=== PATIENT | male | born 1975 | race Caucasian/White ===

== ENCOUNTER 2019-05-22 14:47 | Emergency (ER) | payer BC ==
[2019-05-22] MEDS ORDERED: Adacel Vial IM ONE ×2 (15:18→15:42)
[2019-05-22] MEDS ORDERED: CLINDAMYCIN-D5W 900 MG/50 ML*** 900 MG/50 ML BAG IV STA (15:19)
--- NOTE | 2019-05-22 15:25 | ERPHSYRPT ---
- History of Present Illness Time Seen by Provider: 05/22/19 14:49 Source: patient Exam Limitations: no limitations Patient Subjective Stated Complaint: pt here for a rash to lower legs for a week , has been on antibotics, pt noteced rash after deer hunting, left foot swollen Triage Nursing Assessment: pt alert, resp easy, skin w/d/p. pt has rash to lower legs, some areas with scabs and swelling to left foot Physician History: 44 years old generally healthy male presented to the ER with chief complaint of bilateral lower extremity rash for almost one week. He was evaluated outpatient , currently on Keflex for the last 4 days with no significant relief and is having more swelling and erythema of left foot associated with moderate intensity sharp shooting pain in left foot with ambulation and better with resting. No swelling of ankle and leg but has multiple spots with scabbing and erythema around. Patient reports he was deer hunting before getting these lesions [place] in the [place]. Denies any fever or chills. No history of MRSA in the past. Timing/Duration: week(s) (1) Quality: burning, itchy, painful Severity: moderate Location: feet, extremities (bilateral lower) Possible Causes: exposure to allergen Modifying Factors: Improves With: prednisone, scratching Associated Symptoms: change in skin texture, edema, rash, No difficulty breathing, No fever, No numbness, No paresthesia Allergies/Adverse Reactions: No Known Drug Allergies Allergy (Unverified 05/22/19 15:05) Hx Tetanus, Diphtheria Vaccination/Date Given: No Hx Influenza Vaccination/Date Given: No Hx Pneumococcal Vaccination/Date Given: No Immunizations Up to Date: Yes - Review of Systems Constitutional: No Symptoms Eyes: No Symptoms Ears, Nose, & Throat: No Symptoms Respiratory: No Symptoms Cardiac: No Symptoms Abdominal/Gastrointestinal: No Symptoms Genitourinary Symptoms: No Symptoms Musculoskeletal: No Symptoms Skin: Cellulitis, Pruritis, Rash, Skin Lesions Neurological: No Symptoms Psychological: No Symptoms Hematologic/Lymphatic: No Symptoms Immunological/Allergic: No Symptoms - Past Medical History Pertinent Past Medical History: No - Past Surgical History Past Surgical History: No - Social History Smoking Status: Never smoker Exposure to second hand smoke: No Drug Use: none Patient Lives Alone: No - Nursing Vital Signs Nursing Vital Signs: Initial Vital Signs Temperature 98.1 F 05/22/19 14:54 Pulse Rate 100 H 05/22/19 14:54 Respiratory Rate 16 05/22/19 14:54 Blood Pressure 145/96 05/22/19 14:54 O2 Sat by Pulse Oximetry 98 05/22/19 14:54 Pain Scale Pain Intensity 5 - Physical Exam General Appearance: no apparent distress Eye Exam: eyes nml inspection Ears, Nose, Throat Exam: normal ENT inspection Neck Exam: normal inspection Respiratory Exam: normal breath sounds, lungs clear Cardiovascular Exam: regular rate/rhythm, normal heart sounds Gastrointestinal/Abdomen Exam: soft Back Exam: normal inspection Extremity Exam: normal range of motion, inflammation, swelling Neurologic Exam: alert, oriented x 3, cooperative Skin Exam: rash, other (mmultiple lesions on bilateral lower legs and feet on feet. Swelling of left foot distally on dorsal aspect with skin lesions scabbing in the center. Warm and tender to touch. No increase in temperature of a lleft foot as compared to right. Intact range of motion at the left ankle and toes.) SpO2 Interpretation: normal SpO2: 98 O2 Delivery: Room Air - Course Nursing assessment & vital signs reviewed: Yes Ordered Tests: Active Orders 24 hr Category Date Time Status BLOOD CULTURE Stat Lab 05/22/19 15:40 Received CBC W DIFF Stat Lab 05/22/19 15:18 Completed CMP Stat Lab 05/22/19 15:30 Completed Lactic Acid Stat Lab 05/22/19 15:45 Completed Medication Summary Discontinued Medications Generic Name Dose Route Start Last Admin Trade Name Freq PRN Reason Stop Dose Admin Diphtheria/Tetanus/Acell Pertussis 0.5 ml 05/22/19 15:18 05/22/19 15:42 Adacel Vial IM 05/22/19 15:19 0.5 ml .ONCE ONE Administration Diphtheria/Tetanus/Acell Pertussis Confirm 05/22/19 15:42 Adacel Vial Administered 05/22/19 15:43 Dose 0.5 ml IM .STK-MED ONE Clindamycin HCl/Dextrose 900 mg in 50 mls @ 100 mls/hr 05/22/19 15:19 16:24 Clindamycin-D5w 900 Mg/50 Ml IV 05/22/19 15:48 Infused STAT STA Infusion Clindamycin HCl/Dextrose Confirm 05/22/19 15:41 Clindamycin-D5w 900 Mg/50 Ml Administered 05/22/19 15:42 Dose 900 mg in 50 mls @ ud IV .STK-MED ONE Lab/Rad Data: Laboratory Result Diagrams 05/22/19 15:18 05/22/19 15:30 Laboratory Results 05/22/19 05/22/19 05/22/19 Range/Units 15:45 15:30 15:18 WBC 9.2 (4.0-10.5) K/mm3 RBC 4.98 (4.1-5.6) M/mm3 Hgb 14.4 (12.5-18.0) gm/dl Hct 43.5 (42-50) % MCV 87.3 (78-100) fl MCH 28.9 (26-32) pg MCHC 33.1 (32-36) g/dl RDW 13.5 (11.5-14.0) % Plt Count 298 (150-450) K/mm3 MPV 10.1 H (6-9.5) fl Gran % 72.2 H (36.0-66.0) % Eos # (Auto) 0.25 (0-0.5) Absolute Lymphs (auto) 1.72 (1.0-4.6) Absolute Monos (auto) 0.53 (0.0-1.3) Lymphocytes % 18.8 L (24.0-44.0) % Monocytes % 5.8 (0.0-12.0) % Eosinophils % 2.7 (0.00-5.0) % Basophils % 0.5 (0.0-0.4) % Absolute Granulocytes 6.60 (1.4-6.9) Basophils # 0.05 (0-0.4) Sodium 142 (137-145) mmol/L Potassium 3.9 (3.5-5.1) mmol/L Chloride 105 (98-107) mmol/L Carbon Dioxide 24 (22-30) mmol/L Anion Gap 15.7 H (5-15) MEQ/L BUN 16 (9-20) mg/dL Creatinine 1.00 (0.66-1.25) mg/dL Estimated GFR > 60.0 ML/MIN Glucose 123 H (74-106) mg/dL Lactic Acid 1.7 (0.4-2.0) Calcium 9.6 (8.4-10.2) mg/dL Total Bilirubin 0.60 (0.2-1.3) mg/dL AST 40 (17-59) U/L ALT 54 H (0-50) U/L Alkaline Phosphatase 57 (38-126) U/L Serum Total Protein 8.0 (6.3-8.2) g/dL Albumin 4.3 (3.5-5.0) g/dL - Progress Progress: unchanged (by his doctor heike), re-examined Progress Note: 44 years old is evaluated for bilateral lower extremity skin lesions and swelling more on the left space in the foot area. I have obtained sepsis workup but is grossly negative. He is given IV clindamycin 1 dose inhaler. Offered observation admission the patient wanted to go home. I think this is reasonable he does have swelling in the left foot but this is partly because of his work being on his feet all day. I will advise him to have rest and elevation and will continue with clindamycin to go home. Area is marked, advised to come back if swelling is getting worse redness or fever or chills. 05/22/19 16:29 Counseled pt/family regarding: lab results, diagnosis, need for follow-up - Departure Departure Disposition: Home Clinical Impression: Cellulitis of foot Condition: Stable Critical Care Time: No Referrals: EDITH NORMAN [Primary Care Provider] - Instructions: Cellulitis (Skin Infection), Adult (DC) Additional Instructions: followup with primary care physician for reevaluation in 2 days.take Tylenol/ ibuprofen as needed for fever/pain. Keep legs elevated. Return to ER for increased swelling redness/fever chills etc. Prescriptions: Clindamycin HCl 150 mg [Cleocin 150 mg Capsule] 2 cap PO QID #56 capsule
[2019-05-22] MEDS ORDERED: CLINDAMYCIN-D5W 900 MG/50 ML*** 900 MG/50 ML BAG IV ONE (15:41)
[2019-05-22 15:53] LABS: BASOPHIL % 0.5 % (0.0-0.4); Basophil (Absolute #) 0.05 (0-0.4); Eosinophil % 2.7 % (0.00-5.0); Eosinophil (Absolute #) 0.25 (0-0.5); Hematocrit 43.5 % (42-50); Hemoglobin 14.4 gm/dl (12.5-18.0); Lymphocyte (Absolute #) 1.72 (1.0-4.6); Lymphocytes % 18.8 % (24.0-44.0); Mean Cell Volume 87.3 fl (78-100); Mean Corpuscular Hemoglobin 28.9 pg (26-32); Mean Corpuscular Hgb Concent. 33.1 g/dl (32-36); Mean Platelet Volume 10.1 fl (6-9.5); Monocyte (Absolute #) 0.53 (0.0-1.3); Monocytes % 5.8 % (0.0-12.0); Neutrophil % 72.2 % (36.0-66.0); Platelet Count 298 K/mm3 (150-450); Red Blood Count 4.98 M/mm3 (4.1-5.6); Red Cell Distribution Width 13.5 % (11.5-14.0); White Blood Count 9.2 K/mm3 (4.0-10.5)
[2019-05-22 15:54] VITALS: BP 160/97; PULSE 110
[2019-05-22 16:03] LABS: ALBUMIN 4.3 g/dL (3.5-5.0); ALKALINE PHOSPHATASE 57 U/L (38-126); ANION GAP 15.7 MEQ/L (5-15); BLOOD UREA NITROGEN 16 mg/dL (9-20); CHLORIDE 105 mmol/L (98-107); Calcium 9.6 mg/dL (8.4-10.2); Carbon Dioxide 24 mmol/L (22-30); Glucose 123 mg/dL (74-106); Potassium 3.9 mmol/L (3.5-5.1); SGOT/AST 40 U/L (17-59); SGPT/ALT 54 U/L (0-50); SODIUM 142 mmol/L (137-145)
[2019-05-22 16:30] VITALS: O2SAT 98
== END 2019-05-22 16:41 | disposition home or self-care (01) ==
LOC: ED 14:47
DX: L03.116 Cellulitis of left lower limb (principal)
CPT/HCPCS: 36000; 36415; 80053; 83605; 85025; 87040; 90471; 90715; 96365; 99284